=== PATIENT | female | born 1970 | race Caucasian/White ===

== ENCOUNTER 2017-05-27 16:00 | Outpatient (RCR) | payer OTHER | END 2017-05-27 16:30 | disposition home or self-care (01) | LOC: PT 16:00 | DX: M25.512 Pain in left shoulder (principal) ==

== ENCOUNTER → 2018-09-23 | Outpatient (CLI) | payer OTHER | LOC: MAMMO 09:55 | DX: Z12.31 Encounter for screening mammogram for malignant neoplasm of breast (principal) ==